=== PATIENT | male | born 1990 | race Caucasian/White ===

== ENCOUNTER 2018-08-11 20:29 | Emergency (ER) | payer SELFPAY ==
[2018-08-11 20:37] VITALS: BP 123/70; PULSE 86; RESP 16; TEMP 36.6; O2SAT 94
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
[2018-08-11 21:24] LABS: Abs Immature Grans 0.01 k/cumm (0.0-0.09); Absolute Basophil Count 0.03 k/cumm (0.0-0.2); Absolute Eosinophil Count 0.37 k/cumm (0.0-0.7); Absolute Lymphocyte Count 2.73 k/cumm (1.2-3.4); Absolute Monocyte Count 0.54 k/cumm (0.11-0.7); Absolute Neutrophil Count 5.05 k/cumm (1.2-6.7); Basophils % 0.3; Eosinophils % 4.2; HCT 47.8 % (40.0-50.0); HGB 16.3 g/dL (13.5-17.5); Immature Grans % 0.1; Lymphocytes % 31.3; Mean Corp. HGB Concentration 34.1 g/dL (32.0-36.0); Mean Corpuscular Hemoglobin 31.5 pg (27.0-33.0); Mean Corpuscular Volume 92.3 fL (80-95); Mean Platelet Volume 10.2 fL (8.0-11.0); Monocytes % 6.2; Neutrophils % 57.9; Platelet Count 244 x1000/uL (130-400); RBC 5.18 m/cumm (4.50-6.00); RBC Distribution Width 12.5 % (11.8-14.1); White Blood Cell Count 8.73 k/cumm (4.4-10.8)
[2018-08-11 21:27] LABS: *AMPHETAMINES SCREEN URINE Negative (Negative); *BARBITURATES SCREEN URINE Negative (Negative); *BENZODIAZEPINES SCREEN URINE Negative (Negative); Cannabinoids THC POSITIVE (Negative); Cocaine Screen,Urine POSITIVE (Negative); METHADONE URINE SCREEN Negative (Negative); OPIATES URINE SCREEN Negative (Negative)
[2018-08-11 21:30] LABS: Tricyclic Antidepressants Negative (Negative)
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
[2018-08-11 21:43] LABS: ALT 38 U/L (12-78); AST 34 U/L (15-37); Alkaline Phosphatase 62 U/L (46-116); Anion Gap 7.5 mmol/L (3-11); BUN 8 mg/dL (7-18); Bilirubin, Total 0.2 mg/dL (0.2-1.0); CO2 26.5 mmol/L (21.0-32.0); CREATININE 1.26 mg/dL (0.70-1.30); Calcium 8.7 mg/dL (8.5-10.1); Chloride 105 mmol/L (98-107); ETHANOL BLOOD 133.2 mg/dL (<3); Glucose 95 mg/dL (70-100); Potassium 4.3 mmol/L (3.5-5.1); Sodium 139 mmol/L (136-145); TSH 0.86 uIU/mL (0.358-3.74); Total Protein 7.4 g/dL (6.4-8.2)
[2018-08-11 21:46] LABS: Salicylate 3.7 mg/dL (2.8-20.0)
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
[2018-08-11 21:55] LABS: Acetaminophen < 2 ug/mL (10-30)
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
[2018-08-12 11:50] VITALS: PULSE 60; RESP 16; TEMP 36.8; O2SAT 60
--- NOTE | 2018-08-12 14:36 | NUR.NOTE ---
patient's female friend requested that the patient go outside and smoke a cigarette and CAMERON presley informed oatient that this is non-smoking facility. patient was offered and refused nicotine gum and nicotine patch Nursing Note:
== END 2018-08-12 14:56 | disposition short-term general hospital (02) ==
PROVIDERS: Emergency Medicine; Emergency Provider Emergency Medicine; PCP General Practice
DX: F41.8 Other specified anxiety disorders (principal); F14.10 Cocaine abuse, uncomplicated; F10.10 Alcohol abuse, uncomplicated; F12.90 Cannabis use, unspecified, uncomplicated; S60.221A Contusion of right hand, initial encounter; W22.8XXA Striking against or struck by other objects, initial encounter; R45.851 Suicidal ideations
CPT/HCPCS: 36415; 80053; 80307; 99285; 73130; 80320; 80329; 84443; 85025; 99284